=== PATIENT | male | born 2000 | race Caucasian/White ===

== ENCOUNTER → 2023-01-06 | Outpatient (CLI) | payer BC, SELFPAY ==
[2023-01-06 13:46] LABS: ALB/GLOB Ratio 1.4 RATIO (0.9-2.4); AST(SGOT) 14 U/L (15-37); Alanine Aminotransfer ALT/SGPT 16 U/L (16-61); Albumin, Serum 4.4 g/dL (3.2-5.0); Alkaline Phosphatase 64 U/L (45-117); Anion Gap 4 (5-15); BUN 13 mg/dL (7-18); BUN/Creat Ratio 15.1 RATIO (10-20); Calcium,Total 8.9 mg/dL (8.5-10.1); Chloride 109 mmol/L (98-107); Cholesterol 149 mg/dL (200); Creatinine, Serum 0.86 mg/dL (0.70-1.30); EST Glomerular Filtration Rate 116 mL/min (>60); Est Glom Filt Rate - Afr Amer 140 mL/min (>60); Globulin 3.1 g/dL (2.2-4.2); Glucose 87 mg/dL (74-106); High Density Lipoprotein 47 mg/dL; Magnesium 2.3 mg/dL (1.6-2.6); Potassium 4.3 mmol/L (3.5-5.1); Protein, Total 7.5 g/dL (6.4-8.2); Sodium Level 140 mmol/L (136-145); Thyroid Stim Hormone (TSH) 3.74 uIU/mL (0.358-3.74); Triglycerides 39 mg/dL; Very Low Density Lipoprotein 8 mg/dL (5-40)
== END | disposition home or self-care (01) ==
LOC: LAB 11:59
PROVIDERS: Visit Provider Internal Medicine Cardiovascular Disease
DX: R00.2 Palpitations (principal)
CPT/HCPCS: 36415; 80053; 80061; 83735; 84443

== ENCOUNTER → 2023-02-08 | Outpatient (CLI) | payer BC, SELFPAY ==
--- NOTE | 2023-02-08 13:03 | ECHOD_ITS ---
Reason For Study: PALPITATIONS Procedure This was a 2D Doppler, Color Flow transthoracic echocardiogram. Exam performed in department. Left Ventricle Normal left ventricle. The left ventricular ejection fraction is 60 %. Right Ventricle Normal right ventricle. Atria The left and right atria are normal. Mitral Valve Trivial mitral valve insufficiency. Tricuspid Valve Trivial tricuspid valve insufficiency. Normal pulmonary artery pressure. Aortic Valve Trisinus/trileaflet aortic valve. Pulmonic Valve Trivial pulmonic valve insufficiency. Great Vessels Normal sized aortic root. Pericardium/Pleural No pericardial effusion. MMode/2D Measurements & Calculations LVIDd: 4.7 cm IVSd: 0.70 cm Ao root diam: 2.7 cm LVIDs: 3.2 cm LVPWd: 0.64 cm RVDd: 3.0 cm FS: 31.2 % LAV(MOD-bp): 32.7 ml LVAd ap4: 27.0 cm2 LVAd ap2: 26.0 cm2 LAV(MOD-bp) Indexed: 17.7 ml/m2 LVLd ap4: 8.3 cm LVLd ap2: 8.0 cm LAV(MOD-sp2): 29.1 ml EDV(MOD-sp4): 75.8 ml EDV(MOD-sp2): 73.7 ml LAV(MOD-sp4): 29.0 ml EDV(sp4-el): 74.6 ml EDV(sp2-el): 72.1 ml LVAs ap4: 15.4 cm2 LVAs ap2: 15.0 cm2 LVLs ap4: 6.6 cm LVLs ap2: 6.4 cm ESV(MOD-sp4): 30.8 ml ESV(MOD-sp2): 29.4 ml ESV(sp4-el): 30.4 ml ESV(sp2-el): 29.7 ml EF(MOD-sp4): 59.4 % EF(MOD-sp2): 60.1 % EF(sp4-el): 59.2 % SV(MOD-sp4): 45.1 ml SV(MOD-sp2): 44.3 ml SV(sp4-el): 44.2 ml LA dimension(2D): 3.1 cm LA A4 area: 12.1 cm2 RA A4 area: 12.1 cm2 TAPSE: 2.4 cm Time Measurements MV dec time: 0.23 sec Doppler Measurements & Calculations MV E max raffi: 84.1 cm/sec Lat Peak E' Raffi: 15.4 cm/sec Med Peak E' Raffi: 16.7 cm/sec MV A max raffi: 44.1 cm/sec E/E' lat: 5.5 E/E' med: 5.0 MV E/A: 1.9 MV V2 max: 104.4 cm/sec MV P1/2t max raffi: 105.6 cm/sec Ao V2 max: 112.4 cm/sec MV max P.4 mmHg MV P1/2t: 82.7 msec Ao max P.1 mmHg MV V2 mean: 51.5 cm/sec MV dec slope: 374.2 cm/sec2 Ao V2 mean: 77.9 cm/sec MV mean P.3 mmHg Ao mean P.8 mmHg MV V2 VTI: 28.6 cm MVA(P1/2t): 2.7 cm2 Ao V2 VTI: 22.1 cm AV (velocity ratio): 0.88 LV V1 max: 91.1 cm/sec PA V2 max: 89.5 cm/sec TR max raffi: 222.4 cm/sec LV V1 max P.3 mmHg PA V2 mean: 65.1 cm/sec TR max P.9 mmHg LV V1 mean P.9 mmHg LV V1 mean: 64.1 cm/sec LV V1 VTI: 19.5 cm ECHO/Echo Complete Interpretation Summary The left ventricular ejection fraction is 60 %. Ordering Physician: David Erickson Referring Physician: NO PCP Performed By: Kaykay Temple, NICHOLAS, RVT
== END | disposition home or self-care (01) ==
PROVIDERS: Referring Provider Internal Medicine Cardiovascular Disease; Visit Provider Internal Medicine Cardiovascular Disease
DX: R00.2 Palpitations (principal)
CPT/HCPCS: 93306